=== PATIENT | female | born 1985 | race Caucasian/White ===

== ENCOUNTER 2023-12-27 13:29 | Emergency (ER) | payer OTHER, SELFPAY ==
[2023-12-27 13:42] VITALS: BP 120/87; PULSE 107; RESP 18; TEMP 37.3; O2SAT 97
[2023-12-27 13:43] VITALS: BP 120/87; PULSE 107; RESP 18; TEMP 37.3; O2SAT 97
--- NOTE | 2023-12-27 13:47 | ED.URI ---
HPI - URI/Sore Throat General Chief Complaint: Upper Respiratory Infection Stated Complaint: Fever/cough Time Seen by Provider: 12/27/23 13:47 Source: patient Mode of arrival: ambulatory Limitations: no limitations History of Present Illness HPI Narrative: 38-year-old female presented for complaint and fever for about 5 days. Endorses temp up to 102.7. Cough at times is productive dark yellow sputum, cough worse when lying down. She denies shortness of breath nausea, vomiting or lethargy. States she feels fine otherwise. Tested negative for COVID 2 days ago. Taking Mucinex, DayQuil, NyQuil, and Aleve. Related Data Allergies Allergy/AdvReac Type Severity Reaction Status Date / Time No Known Allergies Allergy Verified 12/27/23 13:43 Review of Systems Review of Systems: CONSTITUTIONAL: Denies body aches, reports fever, sweats. EYES: Denies visual changes, redness, or discharge. ENT: Denies rhinorrhea, congestion, sore throat, or otalgia. CARDIOVASCULAR: Denies chest pain, palpitations, or edema. RESPIRATORY: Reports cough, denies sob, wheezing. GASTROINTESTINAL: Denies abdominal pain, nausea, vomiting, or diarrhea. MUSCULOSKELETAL: Denies back pain, joint pain, or myalgia. NEUROLOGIC: Denies headache, numbness, tingling, or weakness. All systems reviewed & are unremarkable except as noted in HPI and below PMFSH Family History Family History Mother Hypertension Father Family history of elevated blood lipids Social History Social History Smoking status: Never smoker Alcohol intake: current Comments At time of signature, I have reviewed and agree with nursing past medical, surgical, social and family history unless otherwise noted. Please see nursing chart for further information. There is no relevant family history pertinent to the presenting complaint Exam Narrative: GENERAL: Well-appearing, in no acute distress. EYES: EOMI. No redness or drainage. Conjunctivae normal. ENT: Mucous membranes pink and moist. No rhinorrhea. TMs normal bilaterally. Throat normal. Uvula midline. CHEST: No respiratory distress. Lungs clear to all wallace. HEART: Regular rate and rhythm. No murmur appreciated. ABDOMEN: Soft, nontender, nondistended, normal active bowel sounds. SKIN: Warm, dry, no rash. Capillary refill normal. Normal skin turgor. NEURO: Alert and oriented x3. Gait steady. PSYCH: Normal affect. Course Course Emergency Course: Patient is aware of diagnosis, understands and agrees to treatment plan. Anticipatory guidance given. Patient agrees to follow-up as directed and is aware of reasons to seek care at the emergency department. Portions of this record may have been created with voice recognition software Level of Care: Express Care Visit Vital Signs Vital signs: Vital Signs Temperature 99.2 F 12/27/23 13:42 Pulse Rate 107 H 12/27/23 13:42 Respiratory Rate 18 12/27/23 13:42 Blood Pressure 120/87 12/27/23 13:42 Pulse Oximetry 97 12/27/23 13:42 Oxygen Delivery Room Air 12/27/23 13:42 Temperature 99.2 F 12/27/23 13:43 Pulse Rate 107 H 12/27/23 13:43 Respiratory Rate 18 12/27/23 13:43 Blood Pressure 120/87 12/27/23 13:43 Pulse Oximetry 97 12/27/23 13:43 Oxygen Delivery Room Air 12/27/23 13:43 MDM - URI/Sore Throat MDM Narrative Medical decision making narrative: Discussed physical exam findings, negative flu. Patient declined COVID and strep testing, declined chest x-ray at this time. Will send prescription for steroid and benzonatate she will follow-up with PCP. Advised supportive measures and signs/symptoms to go to the ER. Pt is appropriate for outpt treatment and f/u. Differential Diagnosis Differential diagnosis: Likely upper respiratory infection, sinusitis, viral infection and influenza Discharge Plan Discharge C
== END 2023-12-27 14:06 | disposition home or self-care (01) ==
PROVIDERS: Emergency Provider Nurse Practitioner Family; PCP Family Medicine
DX: J40 Bronchitis, not specified as acute or chronic (principal)
CPT/HCPCS: 99213; G0463

== ENCOUNTER 2024-03-30 01:31 | Day surgery (SDC) | payer OTHER, SELFPAY ==
[2024-03-25 10:31] VITALS: BMI 20.9
[2024-03-30 10:35] VITALS: BP 141/80; PULSE 77; RESP 20; TEMP 36.4; O2SAT 100; BMI 20.9
[2024-03-30] MEDS: LACTATED RINGERS 1,000 ML 150 ML IV CONT (10:38)
[2024-03-30 10:40] LABS: BEDSIDEPREGUCG Negative (Negative)
--- NOTE | 2024-03-30 10:57 | WPDANESEPPF ---
Anes - Initial Pre Proc Eval Procedure: Operation Date: 03/30/24 11:30 Proposed Procedures p Esophagogastroduodenoscopy - Ashwin Jimenez MD Date/Time: 03/30/24 10:57 Surgeon: Ashwin Jimenez MD Pre Op Diagnosis: Dysphagia Patient Data Age: 38 Gender: F Height: 1.68 m Weight: 58.9 kg Last Vital Signs Temp 97.5 F L 03/30/24 10:35 Pulse 77 03/30/24 10:35 Resp 20 03/30/24 10:35 BP 141/80 H 03/30/24 10:35 Pulse Ox 100 03/30/24 10:35 O2 Del Method Room Air 03/30/24 10:35 Allergies Allergy/AdvReac Type Severity Reaction Status Date / Time No Known Allergies Allergy Verified 03/30/24 10:33 Home Medications Medication Instructions Recorded Confirmed Type omeprazole 40 mg capsule,delayed 40 mg PO DAILY 1 month #30 caps 02/11/24 03/30/24 Rx release ferrous sulfate 325 mg (65 mg 65 mg PO EVERY OTHER DAY 03/25/24 03/30/24 History iron) tablet (FeroSul) Laboratory Tests 03/30/24 10:35 POC Urine HCG, Qual Negative (Negative) Patient hx anesthesia problems: none Family hx anesthesia problems: none Results Review: All pre-operative results and documents have been reviewed as part of the pre-operative evaluation. [facility] Past Medical History Medical History (Updated 02/11/24 @ 10:47 by EMILY Perez) Eosinophilic esophagitis Family History Family History Mother Hypertension Father Family history of elevated blood lipids Social History Social History Years smoked: 3 Smoking status: Former smoker Tobacco type: cigarettes Additional smoking assessment comments: 20 year ago Alcohol intake: current Drinks per week: 3 Living arrangements: with family Spiritual care concerns: No Anes - Eval Final PreProcedure Day of Procedure 03/30/24 10:57 Patient weight: normal Heart: regular rate and rhythm Lungs: clear to auscultation Airway: Mallampati scale class II Neurological: alert and oriented Last oral intake: >/= 8 hours ASA classification: II Emergent: no Anesthetic plan: proceed Anesthesia type and monitoring: general GIVS and standard monitoring Results Review: All pre-operative results and documents have been reviewed as part of the pre-operative evaluation. Informed Consent: The patient's anesthetic plan and its attendant risks and benefits were discussed with the patient/family/POA. Questions were solicited and answers provided to the satisfaction of the patient/family/POA.
--- NOTE | 2024-03-30 11:24 | PM.HPGS ---
History of Present Illness History of Present Illness Consent: Risks, benefits, and alternatives have been discussed and questions answered. Patient agrees to proceed with procedure. Chief complaint: Dysphagia Narrative: Marta Mario is a 38 year old female with intermittent dysphagia, last egd with dilatation 2021, ? h/o EoE but she is not longer using ppi, never tried dupixent. Review of Systems Review of Systems: All systems reviewed & are unremarkable except as noted in HPI and below PMFSH Past Medical History Medical History (Updated 03/30/24 @ 11:25 by Ashwin Jimenez MD) Dysphagia Eosinophilic esophagitis Family History Family History Mother Hypertension Father Family history of elevated blood lipids Social History Social History Years smoked: 3 Smoking status: Former smoker Tobacco type: cigarettes Additional smoking assessment comments: 20 year ago Alcohol intake: current Drinks per week: 3 Living arrangements: with family Spiritual care concerns: No Meds Home Medications and Allergies Home Medications Medication Instructions Recorded Confirmed Type omeprazole 40 mg capsule,delayed 40 mg PO DAILY 1 month #30 caps 02/11/24 03/30/24 Rx release ferrous sulfate 325 mg (65 mg 65 mg PO EVERY OTHER DAY 03/25/24 03/30/24 History iron) tablet (FeroSul) Allergies Allergy/AdvReac Type Severity Reaction Status Date / Time No Known Allergies Allergy Verified 03/30/24 10:33 Vital Signs Vital Signs - 24 hr 03/30/24 10:35 Temperature 97.5 F L Pulse Rate 77 Respiratory Rate 20 Blood Pressure 141/80 H Pulse Oximetry 100 Oxygen Delivery Room Air Exam Const: General: comfortable and no acute distress HENMT: Face/Nose/Sinus: Normal nares present Eyes: General: appearance normal, both eyes and all related structures Neck: Neck: no JVD Resp: Auscultation: clear to auscultation bilaterally Cardio: Rate: regular rate Rhythm: regular rhythm GI: Inspection: non-distended GI Palp: Yes Soft to palpation Skin: General skin exam: normal color Neuro: General: gait normal Speech: normal speech Extrem: General: normal to inspection Psych: Mental Status: mental status grossly normal Assessment and Plan Assessment and plan (1) Dysphagia: Code(s): R13.10 - Dysphagia, unspecified Status: Acute Assessment and Plan: egd with bx, will assess if EoE
[2024-03-30 11:40] VITALS: BP 90/46; PULSE 68; RESP 17; O2SAT 100
[2024-03-30 11:50] VITALS: BP 91/50; PULSE 73; RESP 15; O2SAT 100
[2024-03-30 12:00] VITALS: BP 114/66; PULSE 81; RESP 20; O2SAT 100
== END 2024-03-30 12:13 | disposition home or self-care (01) ==
PROVIDERS: Anesthesiology; PCP Family Medicine; Referring Provider Nurse Practitioner Family; Visit Provider Internal Medicine Gastroenterology
PROC: 0DJ08ZZ Inspection of Upper Intestinal Tract, Via Natural or Artificial Opening Endoscopic (ICD-10-PCS; CPT 43235; principal; 2024-03-30 11:30)
DX: K22.2 Esophageal obstruction (principal); K20.0 Eosinophilic esophagitis; K29.50 Unspecified chronic gastritis without bleeding; Z87.891 Personal history of nicotine dependence
CPT/HCPCS: 43249; 43239; 88305; C1726; J2003; J2704; J7120